=== PATIENT | female | born 1985 | race Caucasian/White ===

== ENCOUNTER 2016-12-06 07:54 | Emergency (ER) | payer MEDICAID ==
[2016-12-06] MEDS ORDERED: NS 1,000 ML IV ONE (08:11)
--- NOTE | 2016-12-06 08:11 | EDPHY ---
H & P Stated Complaint: l sided abd pain/chronic/taking opiods off street and drinking for pain Time Seen by Provider: 12/06/16 08:10 HPI/ROS: CHIEF COMPLAINT: Acute exacerbation of left-sided abdominal pain HISTORY OF PRESENT ILLNESS: The patient presents to the ED with an acute exacerbation of left-sided abdominal pain. 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 The patient also reports she has a history of pyelonephritis. The patient has been drinking alcohol. The patient reportedly has been off of her narcotic medications. REVIEW OF SYSTEMS: A comprehensive 10 point review of systems is otherwise negative aside from elements mentioned in the history of present illness. Source: Patient - Personal History LMP (Females 10-55): 1-7 Days Ago Current Tetanus/Diphtheria Vaccine: No - Medical/Surgical History Hx Asthma: No Hx Chronic Respiratory Disease: No Hx Diabetes: No Hx Cardiac Disease: No Hx Renal Disease: No Hx Cirrhosis: No Hx Alcoholism: No Hx HIV/AIDS: No Hx Splenectomy or Spleen Trauma: No Other PMH: leukemia - Social History Smoking Status: Current every day smoker - Physical Exam Exam: General Appearance: Alert, no distress Eyes: Pupils equal and round no pallor or injection ENT, Mouth: Mucous membranes moist Respiratory: There are no retractions, lungs are clear to auscultation Cardiovascular: Regular rate and rhythm Gastrointestinal: Abdomen is soft and nontender, no masses, bowel sounds normal Back: Tenderness to palpation left ribs, no rash Neurological: A&O, normal motor function, normal sensory exam, normal cranial nerves Skin: Warm and dry, no rashes Musculoskeletal: Neck is supple nontender Extremities: symmetrical, full range of motion Constitutional: Initial Vital Signs Temperature (C) 37 C 12/06/16 07:57 Heart Rate 126 H 12/06/16 07:57 Respiratory Rate 20 12/06/16 07:57 Blood Pressure 136/94 H 12/06/16 07:57 O2 Sat (%) 94 12/06/16 07:57 O2 Delivery Mode Room Air Allergies/Adverse Reactions: acetaminophen [From Vicodin] Allergy (Verified 12/06/16 07:56) ITCH fentanyl [Fentanyl] Allergy (Verified 12/06/16 07:56) ITCH hydrocodone bitartrate [From Vicodin] Allergy (Verified 12/06/16 07:56) ITCH tramadol [Tramadol] Allergy (Verified 12/06/16 07:56) Rash cephalsporins Allergy (Intermediate, Uncoded 04/13/16 02:07) Rash meropenum Allergy (Intermediate, Uncoded 04/13/16 02:07) Hives Home Medications: Medication Instructions Recorded Oxycodone HCl 12/06/16 Percocet 5/325 (*) 12/06/16 Promethazine HCl [Phenergan 12.5mg 12.5 mg PO TID PRN #12 tablet 12/06/16 tab] Medical Decision Making - Diagnostics Imaging Results: Imaging Impressions Abdomen/Pelvis CT 12/06/16 09:30 Impression: 1. No nephrolithiasis or hydronephrosis. 2. Normal noncontrast CT abdomen and pelvis. Attention: This CT examination is specifically designed to evaluate patients who are clinically suspected of having acute obstructive uropathy. This examination does not use radiographic contrast, and as such, provides only a limited evaluation of the abdomen, pelvis and retroperitoneum. If there is further clinical suspicion for pathological conditions other than obstructive uropathy, a complete CT evaluation of the abdomen and pelvis utilizing intravenous, oral, and rectal contrast should be considered. Findings and recommendations discussed with Emergency Department physician, Pastor Martinez, at 1121 hours on December 06, 2016. Final report concurs with initial preliminary interpretation. CT abdomen pelvis without IV contrast: Images reviewed by myself and discussed with Dr. Petty. Negative for acute abnormality. Specifically no evidence of nephrolithiasis, ureterolithiasis or renal stranding noted. ED Course/Re-evaluation: The patient presents to the ED with an acute exacerbation of chronic left-sided abdominal pain. The patient is noted to be in no acute distress. The patient has no evidence of pancreatitis or significant hepatitis. She does have a mild transaminitis consistent with her history of chronic alcohol abuse. The patient's urine will be cultured as she does have 3-5 white blood cells. I will withhold antibiotics pending the results of her urine culture. The patient will be provided a prescription for Phenergan. The patient has not receive narcotic medications in the emergency department. The patient was also given 50 mg of Benadryl for pruritus. She did undergo a CT scan of the abdomen pelvis without IV contrast which demonstrated no significant intra-abdominal abnormality. In reviewing the patient's past medical records [facility] she clearly has a well- documented pattern of chronic abdominal pain. The patient will be [facility] back to [facility] for further assistance with her alcohol dependence. Differential Diagnosis: Differential diagnosis considered includes pyelonephritis, pancreatitis, alcoholic gastritis, chronic musculoskeletal pain, nephrolithiasis - Data Points Laboratory Results: Laboratory Results 12/06/16 08:20 12/06/16 08:20 12/06/16 12/06/16 12/06/16 08:20 08:20 08:20 WBC 5.75 10^3/uL 10^3/uL (3.80-9.50) RBC 5.18 10^6/uL 10^6/uL (4.18-5.33) Hgb 15.9 g/dL g/dL (12.6-16.3) Hct 44.7 % % (38.0-47.0) MCV 86.3 fL fL (81.5-99.8) MCH 30.7 pg pg (27.9-34.1) MCHC 35.6 g/dL g/dL (32.4-36.7) RDW 12.8 % % (11.5-15.2) Plt Count 232 10^3/uL 10^3/uL (150-400) MPV 9.2 fL fL (8.7-11.7) Neut % (Auto) 41.3 % % (39.3-74.2) Lymph % (Auto) 49.4 % H % (15.0-45.0) [place] % (Auto) 8.0 % % (4.5-13.0) Eos % (Auto) 0.5 % L % (0.6-7.6) Baso % (Auto) 0.5 % % (0.3-1.7) Nucleat RBC Rel Count 0.0 % % (0.0-0.2) Absolute Neuts (auto) 2.37 10^3/uL 10^3/uL (1.70-6.50) Absolute Lymphs (auto) 2.84 10^3/uL 10^3/uL (1.00-3.00) Absolute Monos (auto) 0.46 10^3/uL 10^3/uL (0.30-0.80) Absolute Eos (auto) 0.03 10^3/uL 10^3/uL (0.03-0.40) Absolute Basos (auto) 0.03 10^3/uL 10^3/uL (0.02-0.10) Absolute Nucleated RBC 0.00 10^3/uL 10^3/uL (0-0.01) Immature Gran % 0.3 % % (0.0-1.1) Immature Gran # 0.02 10^3/uL 10^3/uL (0.00-0.10) Sodium 142 mEq/L mEq/L (134-144) Potassium 3.6 mEq/L mEq/L (3.5-5.2) Chloride 100 mEq/L mEq/L (97-110) Carbon Dioxide 22 mEq/l mEq/l (22-31) Anion Gap 20 mEq/L H mEq/L (8-16) BUN 13 mg/dL mg/dL (7-23) Creatinine 0.6 mg/dL mg/dL (0.6-1.0) Estimated GFR > 60 Glucose 119 mg/dL H mg/dL (70-100) Calcium 9.4 mg/dL mg/dL (8.5-10.4) Total Bilirubin 1.0 mg/dL mg/dL (0.1-1.4) Conjugated Bilirubin 0.4 mg/dL mg/dL (0.0-0.5) Unconjugated Bilirubin 0.6 mg/dL mg/dL (0.0-1.1) AST 67 IU/L H IU/L (14-46) ALT 53 IU/L H IU/L (9-52) Alkaline Phosphatase 99 IU/L IU/L (38-126) Total Protein 8.0 g/dL g/dL (6.3-8.2) Albumin 4.8 g/dL g/dL (3.5-5.0) Lipase 190.0 IU/L IU/L (23-300) Beta HCG, Qual NEGATIVE Urine Color Urine Appearance Urine pH Ur Specific [place] Urine Protein Urine Ketones Urine Blood Urine Nitrate Urine Bilirubin Urine Urobilinogen Ur Leukocyte Esterase Urine RBC Urine WBC Ur Epithelial Cells Urine Bacteria Urine Mucus Ur Culture Indicated? Urine Glucose 12/06/16 08:05 WBC RBC Hgb Hct MCV MCH MCHC RDW Plt Count MPV Neut % (Auto) Lymph % (Auto) [place] % (Auto) Eos % (Auto) Baso % (Auto) Nucleat RBC Rel Count Absolute Neuts (auto) Absolute Lymphs (auto) Absolute Monos (auto) Absolute Eos (auto) Absolute Basos (auto) Absolute Nucleated RBC Immature Gran % Immature Gran # Sodium Potassium Chloride Carbon Dioxide Anion Gap BUN Creatinine Estimated GFR Glucose Calcium Total Bilirubin Conjugated Bilirubin Unconjugated Bilirubin AST ALT Alkaline Phosphatase Total Protein Albumin Lipase Beta HCG, Qual Urine Color YELLOW Urine Appearance HAZY Urine pH 6.0 (5.0-7.5) Ur Specific [place] 1.022 (1.002-1.030) Urine Protein 3+ H (NEGATIVE) Urine Ketones 1+ H (NEGATIVE) Urine Blood 3+ H (NEGATIVE) Urine Nitrate NEGATIVE (NEGATIVE) Urine Bilirubin NEGATIVE (NEGATIVE) Urine Urobilinogen 2.0 EU H EU (0.2-1.0) Ur Leukocyte Esterase NEGATIVE (NEGATIVE) Urine RBC 1-3 /hpf /hpf (0-3) Urine WBC 3-5 /hpf H /hpf (0-3) Ur Epithelial Cells 1+ /lpf /lpf (NONE-1+) Urine Bacteria 1+ /hpf H /hpf (NONE SEEN) Urine Mucus 1+ /lpf /lpf (NONE-1+) Ur Culture Indicated? NOT INDICATED (NI) Urine Glucose NEGATIVE (NEGATIVE) Medications Given: Discontinued Medications Diphenhydramine HCl (Benadryl Injection) 25 mg IVP EDNOW ONE Stop: 12/06/16 11:16 Last Admin: 12/06/16 11:17 Dose: 25 mg Sodium Chloride (Ns) 1,000 mls @ 0 mls/hr IV EDNOW ONE; Wide Open PRN Reason: Protocol Stop: 12/06/16 08:12 Last Admin: 12/06/16 08:26 Dose: 1,000 mls Ketorolac Tromethamine (Toradol) 15 mg IVP EDNOW ONE Stop: 12/06/16 10:50 Last Admin: 12/06/16 10:51 Dose: 15 mg Ondansetron HCl (Zofran) 4 mg IVP EDNOW ONE Stop: 12/06/16 08:54 Last Admin: 12/06/16 08:58 Dose: Not Given Promethazine HCl (Phenergan) 12.5 mg IVP EDNOW ONE Stop: 12/06/16 08:59 Last Admin: 12/06/16 09:00 Dose: 12.5 mg Departure - Departure Disposition: Home, Routine, Self-Care Clinical Impression: Acute flank pain Condition: Good Instructions: Flank Pain (ED) Additional Instructions: 1. Phenergan as needed for nausea. 2. Please contact the emergency department in 2 days to check the results of your urine culture to see if antibiotics are indicated. Referrals: SARAH ZAMUDIO [Other] - As per Instructions Prescriptions: Promethazine HCl [Phenergan 12.5mg tab] 12.5 mg PO TID PRN #12 tablet PRN Reason: for nausea
[2016-12-06 08:27] LABS: COLOR YELLOW; LEUKOCYTE ESTERASE,URINE NEGATIVE (NEGATIVE); NITRITE,URINE NEGATIVE (NEGATIVE)
[2016-12-06 08:40] LABS: BACTERIA 1+ /hpf (NONE SEEN); MUCUS 1+ /lpf (NONE-1+)
[2016-12-06] MEDS ORDERED: ONDANSETRON 4 MG/2 ML VIAL IVP ONE (08:53)
[2016-12-06] MEDS ORDERED: ONDANSETRON 4 MG/2 ML VIAL ONE (08:54)
[2016-12-06] MEDS ORDERED: PROMETHAZINE HCL 25 MG/ML INJ ONE (08:56)
[2016-12-06 08:57] LABS: % IMMATURE GRANULYOCYTES 0.3 % (0.0-1.1); ABSOLUTE IMMATURE GRANULOCYTES 0.02 10^3/uL (0.00-0.10); ADD DIFF? NO; ADD MORPH? NO; ADD SCAN? NO; ATYPICAL LYMPHOCYTE FLAG 0 (0-99); FRAGMENT RBC FLAG 0 (0-99); HEMATOCRIT 44.7 % (38.0-47.0); HEMOGLOBIN 15.9 g/dL (12.6-16.3); LEFT SHIFT FLG 0 (0-99); LIPEMIA HEMOLYSIS FLAG 90 (0-99); MEAN CELL HEMOGLOBIN 30.7 pg (27.9-34.1); MEAN CELL HEMOGLOBIN CONCENTR. 35.6 g/dL (32.4-36.7); MEAN CELL VOLUME 86.3 fL (81.5-99.8); MEAN PLATELET VOLUME 9.2 fL (8.7-11.7); PLATELET CLUMPS FLAG 10 (0-99); PLATELET COUNT 232 10^3/uL (150-400); RED BLOOD CELL COUNT 5.18 10^6/uL (4.18-5.33); RED CELL DISTRIBUTION WIDTH 12.8 % (11.5-15.2)
[2016-12-06] MEDS ORDERED: PROMETHAZINE HCL 25 MG/ML INJ IVP ONE (08:58)
[2016-12-06 09:03] LABS: ALANINE AMINOTRANSFERASE 53 IU/L (9-52); ALBUMIN 4.8 g/dL (3.5-5.0); ALKALINE PHOSPHATASE 99 IU/L (38-126); ANION GAP 20 mEq/L (8-16); ASPARTATE AMINOTRANSFERASE 67 IU/L (14-46); BILIRUBIN-CONJUGATED 0.4 mg/dL (0.0-0.5); BILIRUBIN-UNCONJUGATED 0.6 mg/dL (0.0-1.1); CALCIUM 9.4 mg/dL (8.5-10.4); CARBON DIOXIDE 22 mEq/l (22-31); CHLORIDE 100 mEq/L (97-110); CREATININE 0.6 mg/dL (0.6-1.0); GLOMERULAR FILTRATION RATE > 60; GLUCOSE 119 mg/dL (70-100); POTASSIUM 3.6 mEq/L (3.5-5.2); SODIUM 142 mEq/L (134-144)
[2016-12-06] MEDS ORDERED: KETOROLAC 15 MG/1 ML SDV ONE (10:39)
[2016-12-06] MEDS ORDERED: KETOROLAC 15 MG/1 ML SDV IVP ONE (10:49)
[2016-12-06 11:42] VITALS: BP 123/92; PULSE 101; RESP 16; TEMP 98.2; O2SAT 95
== END 2016-12-06 11:45 | disposition home or self-care (01) ==
DX: R10.9 Unspecified abdominal pain (principal); F17.200 Nicotine dependence, unspecified, uncomplicated; E86.9 Volume depletion, unspecified
CPT/HCPCS: 96374; J1200; J1885; J2405; J2550

== ENCOUNTER 2016-12-06 12:21 | Emergency (ER) | payer MEDICAID ==
[2016-12-06 12:40] VITALS: BP 123/89; PULSE 94; RESP 18; TEMP 98.1; O2SAT 95
== END 2016-12-06 15:49 | disposition left against medical advice (07) ==
DX: Z53.21 Procedure and treatment not carried out due to patient leaving prior to being seen by health care provider (principal)